=== PATIENT | male | born 2000 | race Caucasian/White ===

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

== ENCOUNTER 2025-05-27 18:51 | Emergency (ER) | payer OTHER, SELFPAY ==
[2025-05-28] MEDS ORDERED: risperiDONE 1 MG TAB ONE (00:12)
[2025-05-28] MEDS ORDERED: Acetaminophen 500 MG TAB ONE (00:13)
== END 2025-05-28 01:50 | disposition home or self-care (01) ==
LOC: ERS 18:51
DX: F20.9 Schizophrenia, unspecified (principal); R51.9 Headache, unspecified; Z76.0 Encounter for issue of repeat prescription
CPT/HCPCS: 96372; 99284